=== PATIENT | female | born 1975 | race Caucasian/White ===

== ENCOUNTER 2022-03-17 14:34 | Emergency (ER) | payer OTHER, SELFPAY ==
[2022-03-17] MEDS ORDERED: Diazepam 5 MG TAB ONE (16:41)
[2022-03-17] MEDS ORDERED: predniSONE 20 MG TAB ONE (16:41)
[2022-03-17] MEDS ORDERED: Ketorolac Tromethamine 30 MG/ML VIAL ONE (16:41)
== END 2022-03-17 17:14 | disposition home or self-care (01) ==
LOC: CSHERS 14:34
DX: M25.511 Pain in right shoulder (principal); M54.50 Low back pain, unspecified
CPT/HCPCS: 72100; 72220; 96372; J1885; J7512